=== PATIENT | female | born 1990 | race Caucasian/White ===

== ENCOUNTER → 2021-01-12 08:05 | Outpatient (BNVA) | payer SELFPAY | DX: Z76.89 Persons encountering health services in other specified circumstances (principal) ==

== ENCOUNTER → 2021-01-19 11:05 | Outpatient (BNVA) | payer SELFPAY | DX: Z76.89 Persons encountering health services in other specified circumstances (principal) ==

== ENCOUNTER → 2022-04-23 12:48 | Outpatient (BNVA) | payer OTHER, SELFPAY | PROVIDERS: PCP Registered Nurse; Visit Provider Psychiatry & Neurology Neurology | DX: R68.84 Jaw pain (principal); G89.29 Other chronic pain; F41.9 Anxiety disorder, unspecified; G47.9 Sleep disorder, unspecified; M26.601 Right temporomandibular joint disorder, unspecified | CPT/HCPCS: 64612; J0585 ==